=== PATIENT | male | born 1965 | race Caucasian/White ===

== ENCOUNTER → 2021-11-29 | Outpatient (CLI) | payer OTHER ==
--- NOTE | 2021-11-29 10:30 | XR ---
EXAMINATION TYPE: XR shoulder complete LT DATE OF EXAM: 11/29/2021 COMPARISON: NONE HISTORY: Pain TECHNIQUE: Three views are submitted. FINDINGS: The osseous structures are intact. There is no acute fracture or dislocation. AC joint arthropathy. Chronic appearing deformity left clavicle. IMPRESSION: 1. AC joint arthropathy.
--- NOTE | 2021-11-29 10:31 | XR ---
EXAMINATION TYPE: XR femur LT DATE OF EXAM: 11/29/2021 CLINICAL HISTORY: Pain TECHNIQUE: Two views of the left femur are obtained. COMPARISON: None FINDINGS: There is no acute fracture or dislocation seen in the left femur. The hip and knee joints demonstrate mild narrowing of joint space. The overlying soft tissue appears unremarkable. IMPRESSION: There is no acute fracture or dislocation in the left femur. Correlate for arthropathy.
--- NOTE | 2021-11-29 10:32 | XR ---
EXAMINATION TYPE: XR Hip Complete LT DATE OF EXAM: 11/29/2021 COMPARISON: NONE HISTORY: Pain TECHNIQUE: 2 views submitted FINDINGS: There is no evidence of erosive change or acute fracture. Mild concentric narrowing of the hip joint. Vascular calcifications. SI joint arthropathy. IMPRESSION: 1. No evidence of acute fracture or dislocation. 2. Arthropathy.
--- NOTE | 2021-11-29 10:33 | XR ---
EXAMINATION TYPE: XR knee complete LT DATE OF EXAM: 11/29/2021 COMPARISON: NONE HISTORY: Pain TECHNIQUE: Three views are submitted. FINDINGS: Joint spaces are preserved. Osseous structures are intact. No acute fracture seen. Small amount of fluid in the suprapatellar bursa. Vascular calcification noted. IMPRESSION: 1. No acute fracture or dislocation.
== END | disposition home or self-care (01) ==
LOC: RADXRMAIN 09:44
PROVIDERS: ATTEND Emergency Medicine
DX: M25.552 Pain in left hip (principal); M25.562 Pain in left knee
CPT/HCPCS: 73502

== ENCOUNTER → 2021-12-03 | Outpatient (CLI) | payer OTHER ==
--- NOTE | 2021-12-03 09:38 | XR ---
AP pelvis HISTORY: Trauma and pain Reviewed the pelvis, correlation prior lumen 11/29/2021 Left hip shows a stable appearance, there is concentric joint space narrowing bilaterally. Some minim al remodeling is present at the left femoral head. No evident fracture or dislocation. Bone mineraliz ation and alignment are maintained. IMPRESSION: No acute abnormality. Osteoarthritis.
== END | disposition home or self-care (01) ==
LOC: RADXRMAIN 09:11
PROVIDERS: ATTEND Emergency Medicine
DX: S70.02XD Contusion of left hip, subsequent encounter (principal); M16.12 Unilateral primary osteoarthritis, left hip; X58.XXXD Exposure to other specified factors, subsequent encounter
CPT/HCPCS: 72170

== ENCOUNTER → 2021-12-18 | Outpatient (CLI) | payer OTHER ==
--- NOTE | 2021-12-18 11:30 | CT ---
EXAMINATION TYPE: CT hip LT wo con DATE OF EXAM: 12/18/2021 COMPARISON: X-ray dated 12/03/2021 HISTORY: Contusion Lt Hip CT DLP: 348 mGycm Automated exposure control for dose reduction was used. TECHNIQUE: CT scan of the left hip without IV contrast administration. 3-D reconstruction images were generated on an independent workstation and reviewed. FINDINGS: Minimal degenerative changes of the left hip joint. Left anterior acetabular subchondral cyst measuri ng 2.1 cm. No definite acute left hip fracture identified. No femoral head dislocation or significant subluxation. No aggressive bone lesion. Scattered arterial atherosclerotic calcifications. Minimal fat stranding overlying the left femoral greater trochanter. IMPRESSION: No definite acute left hip bone fracture or dislocation. Incidental findings as described above.
== END | disposition home or self-care (01) ==
LOC: RADCTMAIN 10:09
PROVIDERS: ATTEND Emergency Medicine
DX: S70.02XA Contusion of left hip, initial encounter (principal); X58.XXXA Exposure to other specified factors, initial encounter